=== PATIENT | male | born 1990 | race Caucasian/White ===

== ENCOUNTER 2018-07-12 00:19 | Emergency (ER) | payer SELFPAY ==
[~2018-07-12] VITALS: Ht 190.5 cm; Wt 84.1 kg
[~2018-07-12 00:19] MED LIST: ASPI325T6 PO; COLACE 100100 MG/CAP PO; ROXICODONE 55 MG/TAB PO
[2018-07-12 00:20] VITALS: BP 131/76; PULSE 88; TEMP 98.7
== END 2018-07-12 01:58 | disposition left against medical advice (07) ==
LOC: COL.ER 00:19
DX: M25.562 Pain in left knee (principal)

== ENCOUNTER 2018-08-06 23:42 | Emergency (ER) | payer SELFPAY ==
[~2018-08-06] VITALS: Ht 190.5 cm; Wt 81.8 kg
[2018-08-06 23:46] VITALS: TEMP 97.3
[2018-08-07 00:15] LABS: BASO % 0.3 % (0.0-2.0); EOS # 0.1 (0.0-0.7); EOS % 0.9 % (0-4.0); GRAN # 7.2 (1.4-6.5); GRAN % 70.1 % (42.2-75.2); HEMOGLOBIN 14.6 g/dl (13.5-18.0); LYMPH # 2.2 (1.2-3.4); LYMPH % 21.4 % (20.0-51.0); MEAN CELL VOLUME 92 fl (80.0-100.0); MEAN CORPUSCULAR HEMOGLOBIN 31 pg (27.0-31.0); MEAN CORPUSCULAR HGB CONC 34 g/dl (33.0-37.0); MONO # 0.7 (0.1-0.6); MONO % 7.1 % (1.7-9.3); PLATELET COUNT 277 K/mm3 (130-400); RED BLOOD COUNT 4.66 M/mm3 (4.20-5.60); REDCELL DISTRIBUTION WIDTH-CV 12.8 % (11.5-14.5)
[2018-08-07 00:25] LABS: ALBUMIN 4.5 gm/dL (3.5-5.0); BILIRUBIN,TOTAL 0.3 mg/dL (0.0-1.0); CALCIUM 9.4 mg/dL (8.4-10.2); CREATININE, serum 0.81 (0.66-1.25); POTASSIUM 3.9 mmol/L (3.4-5.0); TOTAL PROTEIN 8.1 gm/dL (6.4-8.2)
[2018-08-07] MEDS ORDERED: MOTRIN 200200 MG/TAB PO (00:37)
[2018-08-07 02:18] VITALS: BP 126/70; PULSE 64
== END 2018-08-07 02:20 | disposition home or self-care (01) ==
LOC: COL.ER 23:42
PROVIDERS: Physician Assistant
DX: R51 Headache (principal); F17.210 Nicotine dependence, cigarettes, uncomplicated
CPT/HCPCS: J1200; J1885; J2550; J7030; Q9967

== ENCOUNTER 2018-08-27 10:30 | Emergency (ER) | payer SELFPAY ==
[~2018-08-27] VITALS: Ht 190.5 cm; Wt 88.6 kg
[~2018-08-27 10:30] MED LIST changes: +MOTRIN 200200 MG/TAB PO
[2018-08-27 10:36] VITALS: BP 131/74; PULSE 72; TEMP 98.1
== END 2018-08-27 11:27 | disposition home or self-care (01) ==
LOC: COL.ER 10:30
DX: M25.561 Pain in right knee (principal); F43.10 Post-traumatic stress disorder, unspecified; F17.210 Nicotine dependence, cigarettes, uncomplicated

== ENCOUNTER 2018-12-16 18:36 | Emergency (ER) | payer SELFPAY ==
[~2018-12-16] VITALS: Ht 190.5 cm; Wt 90.9 kg
[2018-12-16 18:42] VITALS: BP 149/94; TEMP 99.2
[2018-12-16 20:05] VITALS: PULSE 81
== END 2018-12-16 20:05 | disposition home or self-care (01) ==
LOC: COL.ER 18:36
DX: S61.210A Laceration without foreign body of right index finger without damage to nail, initial encounter (principal); F17.210 Nicotine dependence, cigarettes, uncomplicated; Z88.1 Allergy status to other antibiotic agents; W26.8XXA Contact with other sharp object(s), not elsewhere classified, initial encounter; Y92.59 Other trade areas as the place of occurrence of the external cause

== ENCOUNTER 2019-05-05 16:39 | Emergency (ER) | payer SELFPAY ==
[~2019-05-05] VITALS: Ht 190.5 cm; Wt 113.6 kg
[2019-05-05 16:48] VITALS: BP 139/80; TEMP 98.6
[2019-05-05] MEDS ORDERED: TUSS PO (18:02)
[2019-05-05 18:11] VITALS: PULSE 81
== END 2019-05-05 18:11 | disposition home or self-care (01) ==
LOC: COL.ER 16:39
DX: J11.1 Influenza due to unidentified influenza virus with other respiratory manifestations (principal); F17.210 Nicotine dependence, cigarettes, uncomplicated

== ENCOUNTER 2019-11-01 15:57 | Emergency (ER) | payer SELFPAY ==
[~2019-11-01] VITALS: Ht 190.5 cm; Wt 115.9 kg
[~2019-11-01 15:57] MED LIST changes: +NORCO 325 MG-51 TAB PO; +TUSS PO
[2019-11-01 16:02] VITALS: TEMP 98.2
[2019-11-01] MEDS ORDERED: MEDROL 4MG DOSPA4 MG PO (16:15)
[2019-11-01 16:58] VITALS: BP 131/86; PULSE 72
== END 2019-11-01 17:00 | disposition home or self-care (01) ==
LOC: COL.ER 15:57
DX: H65.01 Acute serous otitis media, right ear (principal)

== ENCOUNTER 2019-11-06 01:21 | Emergency (ER) | payer OTHER ==
[~2019-11-06] VITALS: Ht 185.4 cm; Wt 100.0 kg
[~2019-11-06 01:21] MED LIST changes: +MEDROL 4MG DOSPA4 MG PO
[2019-11-06 02:15] VITALS: BP 133/76; PULSE 80; TEMP 97.6
== END 2019-11-06 02:29 | disposition home or self-care (01) ==
LOC: COL.ER 01:21
DX: S93.401A Sprain of unspecified ligament of right ankle, initial encounter (principal); S80.01XA Contusion of right knee, initial encounter; F17.210 Nicotine dependence, cigarettes, uncomplicated; Y04.0XXA Assault by unarmed brawl or fight, initial encounter